=== PATIENT | male | born 1995 | race African-American/Black ===

== ENCOUNTER 2019-03-29 13:24 | Emergency (ER) | payer OTHER ==
[2019-03-29 13:53] VITALS: BP 147/70
--- NOTE | 2019-03-29 14:31 | UC ---
Respiratory Complaint HPI - HPI Summary HPI Summary: Started w/ cough on 03/17/19 and feels worsening. Having difficulty sleeping at night, sometimes chest gonzalez with coughing. Has seen [facility], given Robitussin which pt has been taking. 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 - History of Current Complaint Chief Complaint: UCGeneralIllness Stated Complaint: COUGH Time Seen by Provider: 03/29/19 13:52 Hx Obtained From: Patient Pain Intensity: 0 Character: Cough: Nonproductive Aggravating Factors: Deep Breaths, Recumbent Position Alleviating Factors: OTC Meds Associated Signs And Symptoms: Positive: Nasal Congestion. Negative: Dyspnea, Chills, Wheezing, Hemoptysis - Allergies/Home Medications Allergies/Adverse Reactions: Allergies Allergy/AdvReac Type Severity Reaction Status Date / Time ibuprofen Allergy Severe lips Verified 03/29/19 13:52 swelling Home Medications: Home Medications Guaifen/Dextromethorphan/PE [Robitussin Cough-Cold Cf Liq] 118 ml PO Q6HR [History Confirmed 03/29/19] PMH/Surg Hx/FS Hx/Imm Hx - Additional Past Medical History Additional PMH: no chronic issues. Previously Healthy: Yes - Surgical History Surgical History: None - Family History Known Family History: Positive: Non-Contributory - Social History Alcohol Use: Occasionally Substance Use Type: Other Smoking Status (MU): Never Smoked Tobacco Review of Systems All Other Systems Reviewed And Are Negative: Yes Constitutional: Negative: Fever, Chills, Fatigue Skin: Negative: Rash ENT: Positive: Sinus Congestion. Negative: Sore Throat, Ear Ache, Nasal Discharge, Sinus Pain/Tenderness Respiratory: Positive: Cough. Negative: Shortness Of Breath Cardiovascular: Negative: Chest Pain Musculoskeletal: Negative: Myalgia Neurological: Negative: Headache, Weakness Physical Exam Triage Information Reviewed: Yes Appearance: Well-Appearing Vital Signs: Initial Vital Signs Temp 98.4 F 03/29/19 13:48 Pulse 97 03/29/19 13:48 Resp 18 03/29/19 13:48 BP 147/70 03/29/19 13:48 Pulse Ox 98 03/29/19 13:48 Vital Signs Reviewed: Yes Eyes: Positive: Conjunctiva Clear ENT: Positive: Pharynx normal Neck: Positive: Supple, Nontender, No Lymphadenopathy Respiratory Exam: Normal Cardiovascular Exam: Normal Skin: Negative: Rashes Respiratory Course/Dx - Course Course Of Treatment: Acute Bronchitis symptoms in a healthy pt that feels its worsening. Exam was unremarkable and has good O2, afebrile. Plan is to try medrol dose jose francisco and night time codeine. Advised rest, increased fluids and vocal rest w/ garggling. - Differential Dx/Diagnosis Differential Diagnosis/HQI/PQRI: Bronchitis, Laryngitis, Lower Resp Infection, Sinusitis, Other Provider Diagnosis: Acute bronchitis Discharge ED - Sign-Out/Discharge Documenting (check all that apply): Patient Departure All imaging exams completed and their final reports reviewed: No Studies - Discharge Plan Condition: Good Disposition: HOME Prescriptions: Acetaminoph/Cod 120/12 mg LIQ* [Tylenol/Codeine 120/12 LIQ*] 10 ml PO BEDTIME PRN 5 Days #50 ml MDD mdd: 10ml PRN Reason: Cough methylPREDNISolone [Medrol Dosepak 4 MG*] 0 mg PO .SEE JOSE FRANCISCO INSTRUCTION #1 jose francisco Patient Education Materials: Acute Bronchitis (ED) Referrals: No Primary Care Phys,NOPCP [Primary Care Provider] - Additional Instructions: Please return if you develop fever. - Billing Disposition and Condition Condition: GOOD Disposition: Home - Attestation Statements Provider Attestation: Per institutional requirements, I have reviewed the chart, however, I was not consulted specifically or made aware of this patient by the midlevel provider. I did not personally evaluate, interact with , or disposition this patient.
== END 2019-03-29 14:39 | disposition home or self-care (01) ==
LOC: UCCORT 13:24
DX: J20.9 Acute bronchitis, unspecified (principal); Z88.8 Allergy status to other drugs, medicaments and biological substances
CPT/HCPCS: 99202; G0463